=== PATIENT | female | born 1970 | race Caucasian/White ===

== ENCOUNTER 2017-12-20 11:41 | Emergency (ER) | payer OTHER ==
[~2017-12-20 11:41] MED LIST: CIPRO250 MG PO; CIPRO500 MG PO; CIPROFLOXACIN500 MG PO; CLINDAMYCIN HC300 MG PO; CYMBALTA30 MG PO; DAYPRO600 M1 PO; DEPAKOTE500 MG PO; FLEXERIL10 MG PO; HYCODAN/HYDROMET5 ML PO; HYDROCODONE BIT1 T11 PO; KEFLEX500 MG PO; LYRICA200 MG PO; LYRICA300 MG; LYRICA75 MG PO; MOBIC15 MG; MOTRIN800 MG PO; NORCO 325 MG-51 TAB PO; NORCO 325 MG-7.1 TAB PO; PERCOCET 325 MG1 TA2 PO; PHENERGAN25 M1 PO; PREDNISONE10 MG PO; PROVENTIL0.09 MG/A1 INH; RESTORIL15 MG PO; SYNTH; SYNTHROID,LEV100 MCG PO; Synthroid,Lev125 MCG PO; Synthroid,Lev200 MCG PO; TESSALON PERLE100 MG PO; VICODIN 5/500 505 MG PO; VICODIN 500 MG-1 TAB PO; ZOFRAN ODT4 MG SL
[2017-12-20] MEDS ORDERED: ROBAXIN500 M1 PO ×2 (13:33→13:39)
[2017-12-20] MEDS ORDERED: IBUPROFEN600 MG PO (13:39)
== END 2017-12-20 13:56 | disposition home or self-care (01) ==
LOC: ED 11:41
DX: G89.29 Other chronic pain (principal); M25.512 Pain in left shoulder; Z90.49 Acquired absence of other specified parts of digestive tract; Z98.890 Other specified postprocedural states; Z98.51 Tubal ligation status; Z88.0 Allergy status to penicillin

== ENCOUNTER 2018-08-10 17:55 | Emergency (ER) | payer OTHER ==
[~2018-08-10] VITALS: Ht 175.2 cm; Wt 103.4 kg
[~2018-08-10 17:55] MED LIST changes: +IBUPROFEN600 MG PO; +ROBAXIN500 M1 PO
[2018-08-10] MEDS ORDERED: ATIVAN0.5 MG PO (18:05)
== END 2018-08-10 19:55 | disposition home or self-care (01) ==
LOC: ED 17:55
DX: M75.102 Unspecified rotator cuff tear or rupture of left shoulder, not specified as traumatic (principal); G89.29 Other chronic pain; F17.200 Nicotine dependence, unspecified, uncomplicated; Z88.0 Allergy status to penicillin; Z79.899 Other long term (current) drug therapy; Z90.49 Acquired absence of other specified parts of digestive tract

== ENCOUNTER 2019-04-07 11:51 | Emergency (ER) | payer OTHER ==
[~2019-04-07] VITALS: Ht 175.2 cm; Wt 100.2 kg
[~2019-04-07 11:51] MED LIST changes: +ATIVAN0.5 MG PO
[2019-04-07] MEDS ORDERED: NORCO 7.5-3251 EACH PO (13:06)
== END 2019-04-07 13:12 | disposition home or self-care (01) ==
LOC: ED 11:51
DX: M54.5 Low back pain (principal); G89.29 Other chronic pain; F17.200 Nicotine dependence, unspecified, uncomplicated; Z90.49 Acquired absence of other specified parts of digestive tract; Z98.890 Other specified postprocedural states; Z98.51 Tubal ligation status; Z79.899 Other long term (current) drug therapy; Z88.0 Allergy status to penicillin

== ENCOUNTER 2019-04-09 14:06 | Emergency (ER) | payer OTHER ==
[~2019-04-09] VITALS: Ht 175.2 cm; Wt 95.7 kg
[~2019-04-09 14:06] MED LIST changes: +NORCO 7.5-3251 EACH PO
[2019-04-09] MEDS ORDERED: ZOFRAN4 MG PO (14:44)
== END 2019-04-09 14:59 | disposition home or self-care (01) ==
LOC: ED 14:06
DX: G89.29 Other chronic pain (principal); Z76.0 Encounter for issue of repeat prescription; Z79.899 Other long term (current) drug therapy; Z88.0 Allergy status to penicillin

== ENCOUNTER → 2019-12-28 | Outpatient (CLI) | payer OTHER ==
[~2019-12-28] MED LIST changes: +ZOFRAN4 MG PO
== END | disposition home or self-care (01) ==
LOC: RAD 11:15
DX: M25.552 Pain in left hip (principal); M25.551 Pain in right hip; M54.5 Low back pain

== ENCOUNTER 2019-12-29 17:05 | Emergency (ER) | payer OTHER ==
[~2019-12-29] VITALS: Ht 175.2 cm; Wt 99.8 kg
[2019-12-29 17:57] LABS: BILIRUBIN NEGATIVE (NEGATIVE); BLOOD 1+ (NEGATIVE); CLARITY SL CLOUDY (CLEAR); COLOR YELLOW (YELLOW); GLUCOSE NEGATIVE (NEGATIVE); KETONE NEGATIVE (NEGATIVE)
[2019-12-29 17:58] LABS: BACTERIA 4+; LEUKO ESTERASE TRACE (NEGATIVE); NITRITE POSITIVE (NEGATIVE); RBC 0-2 rbc/hpf (0-2); UROBILINOGEN 0.2 E.U./dl (0.2-1.0); WBC 16-20 wbc/hpf (0-5)
[2019-12-29 17:59] LABS: MUCOUS 1+
[2019-12-29 18:01] LABS: URINE AMPHETAMINES < 1000 (1000ng/ml); URINE BARBITURATES < 200 (200ng/ml); URINE BENZODIAZEPINES < 200 (200ng/ml); URINE CANNABINOIDS (THC) < 50 (50ng/ml); URINE COCAINE < 300 (300ng/ml); URINE METHADONE < 300 (300ng/ml); URINE OPIATES > 300 (300ng/ml)
[2019-12-29 18:02] LABS: URINE PHENCYCLIDINE < 25 (25ng/ml)
== END 2019-12-29 18:33 | disposition home or self-care (01) ==
LOC: ED 17:05
PROVIDERS: Emergency Medicine
DX: G89.29 Other chronic pain (principal); F41.9 Anxiety disorder, unspecified; M79.7 Fibromyalgia; E07.9 Disorder of thyroid, unspecified; Z76.0 Encounter for issue of repeat prescription; Z02.83 Encounter for blood-alcohol and blood-drug test; Z90.49 Acquired absence of other specified parts of digestive tract; Z88.0 Allergy status to penicillin; Z79.899 Other long term (current) drug therapy

== ENCOUNTER 2024-12-24 12:48 | Emergency (ER) | payer OTHER ==
[~2024-12-24] VITALS: Ht 175.2 cm; Wt 112.1 kg
[2024-12-24] MEDS ORDERED: Ketorolac Tromethamine 15 MG/ML VIAL IV ONE (13:20)
[2024-12-24] MEDS ORDERED: SODIUM CHLORIDE 0.9% 1,000 ML IV ONE (13:20)
[2024-12-24 13:34] LABS: BASO % 0.6 % (0.0-1.0); EOS # 0.1 10*3/uL (0.0-0.4); EOS % 0.9 % (1.0-4.0); HEMATOCRIT 43.1 % (37.0-47.0); MEAN CELL VOLUME 88.5 fl (81.0-99.0); MEAN CORPUSCULAR HGB 28.7 pg (27.0-31.0); MEAN CORPUSCULAR HGB CONC 32.5 g/dl (33.0-37.0); MEAN PLATELET VOLUME 8.8 fl (9.6-12.3); MONO # 0.5 10*3/uL (0.1-1.0); MONO % 9.5 % (3.0-9.0); NEUT # 4.3 10*3/uL (2.3-7.9); NEUT % 78.5 % (47.0-73.0); PLATELET COUNT AUTOMATED 209 10*3/uL (130-400); RED BLOOD COUNT 4.87 10*6/uL (4.10-5.10); RED CELL DISTRI WIDTH 13.3 % (0-14.5); WHITE BLOOD COUNT 5.5 10*3/uL (4.8-10.8)
[2024-12-24 13:58] LABS: POTASSIUM 3.5 mmol/L (3.4-5.1); TOTAL PROTEIN 7.3 gm/dL (6.0-8.0)
[2024-12-24] MEDS ORDERED: AVPAK AZITHROM250 M1 PO (14:21)
== END 2024-12-24 14:53 | disposition home or self-care (01) ==
LOC: ED 12:48
PROVIDERS: Emergency Medicine
DX: J40 Bronchitis, not specified as acute or chronic (principal); Z20.822 Contact with and (suspected) exposure to COVID-19; M79.7 Fibromyalgia; M19.90 Unspecified osteoarthritis, unspecified site; E03.9 Hypothyroidism, unspecified; Z88.0 Allergy status to penicillin; Z90.49 Acquired absence of other specified parts of digestive tract; Z98.890 Other specified postprocedural states